=== PATIENT | male | born 1940 | race Caucasian/White ===

== ENCOUNTER 2018-03-21 16:23 | Emergency (ER) | payer OTHER ==
--- NOTE | 2018-03-21 17:10 | RAD REPORT ---
EXAM DESCRIPTION: CT - Head Brain Wo Cont - 03/21/2018 4:51 pm CLINICAL HISTORY: Right occipital pain COMPARISON: None. TECHNIQUE: Axial 5 mm thick images of the head were obtained without IV contrast. All CT scans are performed using dose optimization technique as appropriate and may include automated exposure control or mA/KV adjustment according to patient size. FINDINGS: No intracranial hemorrhage, mass, edema or shift of mid-line structures. No acute infarcti on changes seen. Atrophy and chronic ischemic changes are present. Ventricular size is in proportion. Arterial tree calcifications seen. Mastoid air cells and visualized portions of the paranasal sinuses are clear. No acute bony findings. No focal abnormality in the subcutaneous tissues. IMPRESSION: Negative non-contrast CT head examination for acute finding Atrophy and chronic ischemic changes are present.
[2018-03-21] MEDS ORDERED: TRAMADOL HCL 50 MG TAB ONE (17:24)
--- NOTE | 2018-03-21 17:36 | EDPHYS ---
Physician Documentation [facility] Name: Lloyd Lindsey Age: 77 yrs Sex: Male : 1940 Arrival Date: 03/21/2018 Time: 16:25 Bed 5 Private MD: Clint Haile R ED Physician Kurtis Ham HPI: 03/21 16:34 This 77 yrs old Male presents to ER via Ambulatory with complaints of cp Headache. 16:35 The patient complains of pain to the right occipital area. The patient describes the cp headache as aching. Onset: The symptoms/episode began/occurred 2 day(s) ago. 16:35 Associated signs and symptoms: Pertinent negatives: there are no associated signs or cp symptoms. 16:35 Patient reports painful and tender area right occipital area of scalp for past 2 days. cp Historical: - Allergies: 16:29 Codeine; la1 - PMHx: 16:29 Hypertension; High Cholesterol; melanoma; la1 - Immunization history:: Adult Immunizations up to date. - Social history:: Smoking status: Patient/guardian denies using tobacco. - Ebola Screening: : No symptoms or risks identified at this time. ROS: 16:40 Constitutional: Negative for body aches, chills, fever, poor PO intake. cp 16:40 Eyes: Negative for injury, pain, redness, and discharge. cp 16:40 ENT: Negative for drainage from ear(s), ear pain, sore throat, difficulty swallowing, difficulty handling secretions. 16:40 Cardiovascular: Negative for chest pain. 16:40 Respiratory: Negative for cough, shortness of breath, wheezing. 16:40 Abdomen/GI: Negative for abdominal pain, nausea, vomiting, and diarrhea. 16:40 Skin: Positive for of the right occipital area, pain. 16:40 Neuro: Negative for altered mental status, dizziness, speech changes, syncope, near syncope, weakness. 16:40 All other systems are negative. Exam: 16:45 Constitutional: The patient appears in no acute distress, alert, awake, cp non-diaphoretic, non-toxic, well developed, well nourished. 16:45 Head/face: Noted is tenderness, that is moderate, of the right occipital area. cp 16:45 Eyes: Periorbital structures: appear normal, Pupils: equal, round, and reactive to light and accomodation, Extraocular movements: intact throughout, Conjunctiva: normal, no exudate, no injection, Lids and lashes: appear normal, bilaterally. 16:45 ENT: External ear(s): are unremarkable, Nose: is normal, Mouth: Lips: moist, Oral mucosa: moist, Posterior pharynx: Airway: no evidence of obstruction, patent. 16:45 Neck: ROM/movement: is normal, is supple, without pain, no range of motions limitations, no meningismus, no nuchal rigidity, Lymph nodes: no appreciated lymphadenopathy. 16:45 Chest/axilla: Inspection: normal, Palpation: is normal, no crepitus, no tenderness. 16:45 Cardiovascular: Rate: tachycardic. 16:45 Respiratory: the patient does not display signs of respiratory distress, Respirations: normal, no use of accessory muscles, no retractions, no splinting, no tachypnea. 16:45 Abdomen/GI: Exam negative for discomfort, distension, guarding, Inspection: abdomen appears normal. 16:45 Skin: cellulitis, is not appreciated, no rash present. noted flesh colored tender mass 0.5 cm right occipital area w/o erythema noted. 16:45 Neuro: Orientation: to person, place \T\ time. Mentation: is normal, Cerebellar function: cp is grossly normal, Motor: moves all fours, strength is normal, Sensation: is normal, Gait: is steady, at a normal pace, without difficulty. Vital Signs: 16:29 BP 162 / 88; Pulse 84; Resp 16; Temp 97.8; Pulse Ox 98% on R/A; Weight 92.99 kg; Height la1 5 ft. 10 in. (177.80 cm); 17:21 BP 136 / 73; Pulse 57; Resp 17; Pulse Ox 97% on R/A; tw2 17:42 BP 127 / 78; Pulse 54; Resp 17; Pulse Ox 97% on R/A; Pain 7/10; tw2 16:29 Body Mass Index 29.41 (92.99 kg, 177.80 cm) la1 MDM: 16:32 Patient medically screened. cp 16:45 Differential diagnosis: migraine, neoplasm, subarachnoid bleed, tension headache, skin cp cancer. 17:24 Data reviewed: vital signs, nurses notes, radiologic studies, CT scan, and as a result, cp I will discharge patient. 11/04 16:36 Order name: CT Head Brain wo Cont; Complete Time: 17:12 cp 03/21 17:12 Interpretation: Report reviewed. cp Administered Medications: 17:21 Drug: traMADol 50 mg Route: PO; tw2 17:42 Follow up: Response: No adverse reaction; Pain is decreased tw2 Disposition: 18:00 Chart complete. cp 18:03 Co-signature as Attending Physician, Kurtis Ham MD I agree with the assessment and kdr plan of care. Disposition: 03/21/18 17:35 Discharged to Home. Impression: Localized swelling, mass and lump of skin and subcutaneous tissue - Right occipital area of scalp. - Condition is Stable. - Discharge Instructions: Excision of Skin Lesions, Skin Biopsy. - Prescriptions for Ultracet 37.5- 325 mg Oral Tablet - take 1 tablet by ORAL route every 6 hours As needed - for up to 5 days; do not exceed 8 tablets per day.; 15 tablet. - Medication Reconciliation Form, Thank You Letter, Antibiotic Education, Prescription Opioid Use form. - Follow up: Clint Haile MD; When: Tomorrow; Reason: Recheck today's complaints. - Problem is new. - Symptoms have improved. Signatures: Dispatcher [employer] EDMS Kurtis Ham MD MD [facility] Ko Law RN RN la1 Isaiah Kerr PA PA Simin Genao RN RN tw2 Corrections: (The following items were deleted from the chart) 17:43 17:35 03/21/2018 17:35 Discharged to Home. Impression: Localized swelling, mass and tw2 lump of skin and subcutaneous tissue - Right occipital area of scalp. Condition is Stable. Forms are Medication Reconciliation Form, Thank You Letter, Antibiotic Education, Prescription Opioid Use. Follow up: Clint Haile; When: Tomorrow; Reason: Recheck today's complaints. Problem is new. Symptoms have improved. cp
--- NOTE | 2018-03-21 17:36 | ER ---
Nurse's Notes [facility] Name: Lloyd Lindsey Age: 77 yrs Sex: Male : 1940 Arrival Date: 03/21/2018 Time: 16:25 Bed 5 Private MD: Clint Haile R Diagnosis: Localized swelling, mass and lump of skin and subcutaneous tissue-Right occipital area of scalp Presentation: 03/21 16:28 Presenting complaint: Patient states: There is a spot on my head that has been hurting la1 for the last 2 days. Transition of care: patient was not received from another setting of care. Onset of symptoms was March 21, 2018. Risk Assessment: Do you want to hurt yourself or someone else? Patient reports no desire to harm self or others. Initial Sepsis Screen: Does the patient meet any 2 criteria? No. Patient's initial sepsis screen is negative. Does the patient have a suspected source of infection? No. Patient's initial sepsis screen is negative. Care prior to arrival: None. 16:28 Method Of Arrival: Ambulatory la1 16:28 Acuity: ANETA 3 la1 Triage Assessment: 16:39 Headache History: Denies prior headaches. General: Appears in no apparent distress. tw2 16:39 Pain: Pain currently is 8 out of 10 on a pain scale. Pain began 2-3 days ago. Also tw2 complains of no other associated symptoms. Neuro: Denies weakness blurred vision dizziness, photophobia. Historical: - Allergies: 16:29 Codeine; la1 - PMHx: 16:29 Hypertension; High Cholesterol; melanoma; la1 - Immunization history:: Adult Immunizations up to date. - Social history:: Smoking status: Patient/guardian denies using tobacco. - Ebola Screening: : No symptoms or risks identified at this time. Screenin:31 Abuse screen: Denies threats or abuse. Nutritional screening: No deficits noted. tw2 Tuberculosis screening: No symptoms or risk factors identified. Fall Risk None identified. Assessment: 16:37 General: Appears in no apparent distress. Behavior is calm, cooperative, appropriate tw2 for age. Pain: Complains of pain in right occipital area. Neuro: Level of Consciousness is awake, alert, obeys commands, Oriented to person, place, time, situation. Neuro: Reports headache in left occipital area, since 2 days ago, comes and goes, ibuprofen helps he states but it takes a while to kick in, pt states "if i press right in the spot it helps it". Cardiovascular: Denies chest pain, shortness of breath, Heart tones S1 S2 Capillary refill < 3 seconds Patient's skin is warm and dry. Respiratory: Airway is patent Respiratory effort is even, unlabored, Respiratory pattern is regular, symmetrical, Breath sounds are clear bilaterally. GI: No signs and/or symptoms were reported involving the gastrointestinal system. Abdomen is flat, Bowel sounds present X 4 quads. : No signs and/or symptoms were reported regarding the genitourinary system. EENT: No signs and/or symptoms were reported regarding the EENT system. Derm: No signs and/or symptoms reported regarding the dermatologic system. Skin is intact, is healthy with good turgor, Skin temperature is warm. Musculoskeletal: Range of motion: intact in all extremities. 17:21 Reassessment: Patient appears in no apparent distress at this time. No changes from tw2 previously documented assessment. Patient and/or family updated on plan of care and expected duration. Pain level reassessed. Patient is alert, oriented x 3, equal unlabored respirations, skin warm/dry/pink. 17:43 Reassessment: Patient appears in no apparent distress at this time. Patient and/or tw2 family updated on plan of care and expected duration. Pain level reassessed. Patient is alert, oriented x 3, equal unlabored respirations, skin warm/dry/pink. Patient states feeling better. Vital Signs: 16:29 BP 162 / 88; Pulse 84; Resp 16; Temp 97.8; Pulse Ox 98% on R/A; Weight 92.99 kg; Height la1 5 ft. 10 in. (177.80 cm); 17:21 BP 136 / 73; Pulse 57; Resp 17; Pulse Ox 97% on R/A; tw2 17:42 BP 127 / 78; Pulse 54; Resp 17; Pulse Ox 97% on R/A; Pain 7/10; tw2 16:29 Body Mass Index 29.41 (92.99 kg, 177.80 cm) la1 ED Course: 16:25 Patient arrived in ED. as 16:25 Clint Haile MD is Private Physician. as 16:29 Triage completed. la1 16:30 Arm band placed on right wrist. la1 16:31 Simin Genao, RN is Primary Nurse. tw2 16:32 Isaiah Kerr PA is PHCP. cp 16:32 Kurtis Ham MD is Attending Physician. cp 16:32 Bed in low position. Call light in reach. quality assurance monitor body on. Pulse ox on. NIBP on. tw2 16:50 CT completed. Patient moved to CT via wheelchair. Patient moved back from CT. cw1 16:51 CT Head Brain wo Cont In Process Unspecified. EDMS 17:32 Clint Haile MD is Referral Physician. cp 17:43 No provider procedures requiring assistance completed. Patient did not have IV access tw2 during this emergency room visit. Administered Medications: 17:21 Drug: traMADol 50 mg Route: PO; tw2 17:42 Follow up: Response: No adverse reaction; Pain is decreased tw2 Outcome: 17:35 Discharge ordered by MD. cp 17:43 Discharged to home ambulatory, with significant other. tw2 17:43 Condition: stable 17:43 Discharge instructions given to patient, significant other, Instructed on discharge instructions, follow up and referral plans. no drinking with medication, no driving heavy equipment, medication usage, Demonstrated understanding of instructions, follow-up care, medications, Prescriptions given X 1. 17:43 Patient left the ED. tw2 Signatures: Dispatcher [employer] EDWY Kami Bee Crystal cw1 Ko Law, RN RN la1 Isaiah Kerr PA PA cp Simin Genao, RN RN tw2 Corrections: (The following items were deleted from the chart) 17:43 17:42 BP 127 / 78; Pulse 54bpm; Resp 17bpm; Pulse Ox 97% RA; tw2 tw2
== END 2018-03-21 17:43 | disposition home or self-care (01) ==
LOC: ER 16:23
DX: R22.0 Localized swelling, mass and lump, head (principal); I10 Essential (primary) hypertension; Z88.5 Allergy status to narcotic agent
CPT/HCPCS: 70450; 99285

== ENCOUNTER 2019-02-18 11:00 | Observation (INO) | payer OTHER ==
[2019-02-18] MEDS ORDERED: ENOXAPARIN 100 MG/ML SYR SQ SCH (13:00)
[2019-02-18 13:47] VITALS: BMI 31.7
[2019-02-18 14:05] LABS: Absolute Lymphocytes (CBC) 0.9 K/uL (0.7-4.9); Basophils % 0.4 % (0-1.3); Hematocrit 44.3 % (39.6-49.0); Lymphocytes % 11.2 % (15.3-44.8); MPV 9.7 fL (7.6-11.3); RBC Red Blood Cell Count 4.85 M/uL (4.33-5.43)
[2019-02-18 14:17] LABS: Albumin 3.3 g/dL (3.4-5.0); Bilirubin Total 0.5 mg/dL (0.2-1.0); Potassium 4.3 mmol/L (3.5-5.1); Protein, Total 6.9 g/dL (6.4-8.2)
[2019-02-18] MEDS: VANCOMYCIN 1.75 GM in NA CHLORIDE 0.9% 500 ML IVPB SCH (17:15)
[2019-02-18 23:06] LABS: Urine Appearance CLEAR; Urine Bilirubin NEGATIVE (NEG); Urine Blood NEGATIVE (NEG); Urine Color YELLOW; Urine Glucose NEGATIVE (NEG); Urine Protein NEGATIVE (NEG); Urine Specific Gravity 1.015 (1.005-1.030); Urine Urobilinogen 0.2 mg/dL (0.2-1.0)
[2019-02-18 23:15] LABS: Urine Microscopic Reflex NO UMIC
[2019-02-19] MEDS: VANCOMYCIN 1.75 GM in NA CHLORIDE 0.9% 500 ML IVPB SCH (17:21)
[2019-02-19] MEDS: TAMSULOSIN 0.4 MG SR CAP PO SCH (21:00)
[2019-02-19] MEDS: VITAMIN E 400 IU CAP PO SCH (22:11)
[2019-02-19] MEDS: ATORVASTATIN 20 MG TAB PO SCH (22:11)
--- NOTE | 2019-02-20 00:47 | HP ---
Date of Admission: 02/18/2019 Chief Complaint: Pain, left leg; chills, streaks going up the thigh. History Of Present Illness: An 78-year-old male who was brought to the office with above-mentioned c omplaint. He was found to have evidence of cellulitis and lymphangitis. Patient had melanoma surger y on that side. Very likely, he does not have any lymph glands. In view of all this, the patient is admitted for initial antibiotic therapy in the IV. Patient denied any trauma. Past Medical History: Positive for hyperlipidemia, benign prostatic hypertrophy. Past Surgical History: Positive for melanoma surgery and left lymph gland removal, gallbladder surge ry, bilateral knee replacements. Allergies: CODEINE. Home Medicines: Please refer to the chart. Review of Systems: No chest pain or shortness of breath. Physical Examination: General: Revealed an 78-year-old male, in [id number] pain. HEENT: Negative. Neck: Supple. JVD negative. Chest: Clear. Heart: Regular. Abdomen: Soft. Extremities: There is diffuse area of redness and tenderness with lymphangitis, starting from the an kle to the mid thigh. Laboratory Data: White count 7.9, platelet count 150. Chem profile; BUN 26, creatinine 1.3. Venous duplex study report is not available currently. Assessment: 1.Cellulitis, extensive, left leg. 2.Hyperlipidemia. 3.Benign prostatic hypertrophy. Plan: Initial IV vancomycin pending the venous study report. NORMA/JOVANI Voice ID: [id number]
[2019-02-20 01:27] VITALS: O2SAT 96
[2019-02-20] MEDS ORDERED: FINASTERIDE 5 MG TAB PO SCH (09:00)
--- NOTE | 2019-02-20 12:20 | PN ---
Patient's leg is better. There is less redness and warmth. Patient receive another course of vancom ycin and he will be discharged after that and followed up in the office on oral Bactrim. NORMA/JOVANI Voice ID: [id number] Report ID: [id number]
[2019-02-20] MEDS: VANCOMYCIN 1.75 GM in NA CHLORIDE 0.9% 500 ML IVPB SCH (17:14)
[2019-02-20] MEDS: ATORVASTATIN 20 MG TAB PO SCH (21:00)
[2019-02-20] MEDS: TAMSULOSIN 0.4 MG SR CAP PO SCH (21:00)
[2019-02-20] MEDS: VITAMIN E 400 IU CAP PO SCH (21:00)
[2019-02-21 01:04] VITALS: BP 168/92; TEMP 97.8
--- NOTE | 2019-02-21 13:15 | RAD REPORT ---
EXAM DESCRIPTION: US EXTREMITY VENOUS UNI LTD CLINICAL HISTORY: Left leg pain and swelling, history of superficial thrombosis. COMPARISON: Leg DVT study October 2016 TECHNIQUE: Left leg DVT study FINDINGS: The left common femoral, superficial femoral and popliteal veins show good compression. Spontaneous and phasic flow is demonstrated. No intraluminal filling defects seen. No thrombus seen in the veins at the ankle. Echogenic material is present in the greater saphenous vein from thigh into the calf. The patient has a history of greater saphenous thrombus. Current findings are those of chronic superficial thrombus. No mass or abnormal fluid collection in the soft tissues. IMPRESSION: 1. No left leg deep venous thrombosis. 2. 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
== END 2019-02-20 21:00 | disposition home or self-care (01) ==
LOC: 2ND 11:00
PROVIDERS: ADMIT Internal Medicine; ATTEND Internal Medicine
DX: L03.116 Cellulitis of left lower limb (principal); I89.1 Lymphangitis; E78.5 Hyperlipidemia, unspecified; N40.0 Benign prostatic hyperplasia without lower urinary tract symptoms
CPT/HCPCS: 87040 ×2; 85025; 36415 ×2; 81003; 80202; 80053; 93971; J1650; G0378 ×5; J7040 ×3